=== PATIENT | female | born 1945 | race Caucasian/White ===

== ENCOUNTER 2020-04-07 11:10 | Emergency (ER) | payer MEDICARE ==
[2020-04-07] MEDS ORDERED: SODIUM CHLORIDE 0.9% 1000ML 1,000 ML IV ONE (11:11)
[2020-04-07] MEDS ORDERED: ONDANSETRON HCL 4 MG/2 ML VIAL ONE (11:52)
[2020-04-07] MEDS ORDERED: KETOROLAC TROMETHAMINE 30MG/ML ONE (11:53)
[2020-04-07 12:46] LABS: BASOPHILS % (AUTO) 0.5 % (0.0-5.0); EOSINOPHILS % (AUTO) 0.6 % (0.0-8.0); HEMATOCRIT 42.8 % (36-48); LYMPHOCYTES % (AUTO) 7.9 % (21.0-51.0); MEAN CORPUSCULAR HEMOGLOBIN 30.8 pg (27.0-33.0); MEAN CORPUSCULAR HGB CONC 34.3 g/dL (32.0-36.0); MEAN CORPUSCULAR VOLUME 89.5 fL (79-99); MONOCYTES % (AUTO) 4.5 % (3.0-13.0); NEUTROPHILS % (AUTO) 85.8 % (40.0-77.0); PLATELET COUNT (AUTO) 485 K/uL (130-400); RED BLOOD CELL COUNT(AUTO) 4.78 MIL/uL (4.00-5.50); RED CELL DISTRIBUTION WIDTH 11.9 % (11.0-15.5); WHITE BLOOD COUNT (AUTO) 20.7 K/uL (4.8-10.8)
[2020-04-07 12:57] LABS: CREATININE 1.3 mg/dL (0.5-1.5); INR 0.92 (0.85-1.15); PARTIAL THROMBOPLASTIN TIME 23.8 SEC (26.3-35.5)
[2020-04-07 13:02] LABS: ALBUMIN 3.8 g/dL (3.5-5.0); BILIRUBIN,TOTAL 0.5 mg/dL (0.2-1.0); TOTAL PROTEIN, SERUM 7.3 g/dL (6.0-8.3)
[2020-04-07 14:38] LABS: APPEARANCE,URINE SL CLOUDY (CLEAR); BILIRUBIN,URINE SMALL (NEGATIVE); COLOR,URINE YELLOW (YELLOW); GLUCOSE, URINE (UA) NEGATIVE (NEGATIVE); KETONES,URINE NEGATIVE (NEGATIVE); LEUKOCYTE ESTERASE ,URINE NEGATIVE (NEGATIVE); NITRATE,URINE NEGATIVE (NEGATIVE); OCCULT BLOOD,URINE SMALL (NEGATIVE); PROTEIN,URINE NEGATIVE (NEGATIVE)
[2020-04-07 14:46] LABS: BACTERIA,URINE Few /HPF (None Seen)
[2020-04-07 14:47] LABS: MUCUS,URINE Few LPF (None Seen); SQUAMOUS EPITHELIAL CELL,UR Few /HPF (0-2)
== END 2020-04-07 16:20 | disposition home or self-care (01) ==
LOC: EDH 11:10
DX: A05.9 Bacterial foodborne intoxication, unspecified (principal); R11.2 Nausea with vomiting, unspecified; R19.7 Diarrhea, unspecified; Z20.828 Contact with and (suspected) exposure to other viral communicable diseases; E11.9 Type 2 diabetes mellitus without complications; E78.00 Pure hypercholesterolemia, unspecified; F32.9 Major depressive disorder, single episode, unspecified
CPT/HCPCS: 36415; 71045; 80053; 81001; 82150; 82550; 83690; 84484; 85025; 85610; 85730; 87426; 93005; 96361; 96374; 96375; 99285; J1885; J2405; J7030; U0003

== ENCOUNTER 2020-04-07 18:22 | Observation (INO) | payer MEDICARE ==
[~2020-04-07] VITALS: Ht 162.6 cm; Wt 94.1 kg
[2020-04-07 18:56] LABS: BASOPHILS % (AUTO) 0.4 % (0.0-5.0); EOSINOPHILS % (AUTO) 0.1 % (0.0-8.0); HEMATOCRIT 35.2 % (36-48); LYMPHOCYTES % (AUTO) 7.7 % (21.0-51.0); MEAN CORPUSCULAR HEMOGLOBIN 30.8 pg (27.0-33.0); MEAN CORPUSCULAR HGB CONC 34.1 g/dL (32.0-36.0); MEAN CORPUSCULAR VOLUME 90.3 fL (79-99); MONOCYTES % (AUTO) 4.7 % (3.0-13.0); NEUTROPHILS % (AUTO) 86.7 % (40.0-77.0); PLATELET COUNT (AUTO) 338 K/uL (130-400); RED CELL DISTRIBUTION WIDTH 12.2 % (11.0-15.5); WHITE BLOOD COUNT (AUTO) 13.9 K/uL (4.8-10.8)
[2020-04-07 19:04] LABS: CREATININE 1.5 mg/dL (0.5-1.5); POTASSIUM 4.2 mmol/L (3.5-5.1)
[2020-04-07] MEDS ORDERED: LACTATED RINGERS 1000ML 1,000 ML IV ONE (19:07)
[2020-04-07 19:09] LABS: INR 0.94 (0.85-1.15); PARTIAL THROMBOPLASTIN TIME 26.1 SEC (26.3-35.5); PROTHROMBIN TIME 10.2 SEC (9.6-11.6)
[2020-04-07] MEDS ORDERED: HYDRALAZINE HCL 20 MG/ML VIAL IV PRN (21:00)
[2020-04-07] MEDS ORDERED: ACETAMINOPHEN 325 MG TAB PO PRN ×2 (21:00)
[2020-04-07] MEDS: METRONIDAZOLE 500MG/100ML BAG 100 ML IV SCH (21:00)
[2020-04-07] MEDS ORDERED: MAG HYDROX/AL HYDROX/SIMETH ES 30 ML SUSP UDCUP PO PRN (21:00)
[2020-04-07] MEDS ORDERED: ONDANSETRON HCL 4 MG/2 ML VIAL IV PRN (21:00)
[2020-04-07] MEDS: LACTATED RINGERS 1000ML 1,000 ML IV SCH (21:00)
[2020-04-07] MEDS ORDERED: LACTULOSE 20 GM/30 ML UDCUP PO PRN (21:00)
[2020-04-07] MEDS ORDERED: METRONIDAZOLE 500MG/100ML BAG 100 ML ONE (21:30)
[2020-04-07 21:46] LABS: APPEARANCE,URINE Clear (CLEAR); BILIRUBIN,URINE Small (NEGATIVE); COLOR,URINE Dark Yellow (YELLOW); GLUCOSE, URINE (UA) 250 mg/dL (NEGATIVE); KETONES,URINE Negative (NEGATIVE); LEUKOCYTE ESTERASE ,URINE Small (NEGATIVE); NITRATE,URINE Negative (NEGATIVE); OCCULT BLOOD,URINE Negative (NEGATIVE); PROTEIN,URINE Negative (NEGATIVE)
[2020-04-07 21:55] LABS: BACTERIA,URINE Few /HPF (None Seen); MUCUS,URINE Few LPF (None Seen); SQUAMOUS EPITHELIAL CELL,UR Few /HPF (0-2)
[2020-04-07] MEDS ORDERED: CEFTRIAXONE SODIUM 1 GM IVP SCH (23:30)
[2020-04-08] MEDS: METRONIDAZOLE 500MG/100ML BAG 100 ML IV SCH ×3 (05:00→21:01)
[2020-04-08] MEDS ORDERED: METRONIDAZOLE 500MG/100ML BAG 100 ML ONE ×2 (05:16→13:20)
[2020-04-08 06:04] LABS: BASOPHILS % (AUTO) 0.5 % (0.0-5.0); EOSINOPHILS % (AUTO) 2.1 % (0.0-8.0); HEMATOCRIT 33.8 % (36-48); LYMPHOCYTES % (AUTO) 20.9 % (21.0-51.0); MEAN CORPUSCULAR HEMOGLOBIN 30.4 pg (27.0-33.0); MEAN CORPUSCULAR HGB CONC 33.7 g/dL (32.0-36.0); MEAN CORPUSCULAR VOLUME 90.1 fL (79-99); MONOCYTES % (AUTO) 6.7 % (3.0-13.0); NEUTROPHILS % (AUTO) 69.5 % (40.0-77.0); PLATELET COUNT (AUTO) 322 K/uL (130-400); RED BLOOD CELL COUNT(AUTO) 3.75 MIL/uL (4.00-5.50); RED CELL DISTRIBUTION WIDTH 12.2 % (11.0-15.5); WHITE BLOOD COUNT (AUTO) 10.5 K/uL (4.8-10.8)
[2020-04-08 06:18] LABS: CREATININE 1.2 mg/dL (0.5-1.5); POTASSIUM 3.9 mmol/L (3.5-5.1)
[2020-04-08] MEDS: LACTATED RINGERS 1000ML 1,000 ML IV SCH (07:00)
[2020-04-08] MEDS: INSULIN HUMULIN R 100 UNIT/ML 3ML SQ SCH ×3 (07:30→21:00)
[2020-04-08] MEDS: CEFTRIAXONE SODIUM 1 GM IVP SCH ×2 (07:45→21:01)
[2020-04-08 08:35] LABS: BILIRUBIN,TOTAL 0.3 mg/dL (0.2-1.0); CREATININE 1.2 mg/dL (0.5-1.5); POTASSIUM 3.9 mmol/L (3.5-5.1); TOTAL PROTEIN, SERUM 5.7 g/dL (6.0-8.3)
[2020-04-08] MEDS ORDERED: CEFTRIAXONE SODIUM 1 GM ONE (10:08)
[2020-04-08] MEDS ORDERED: SODIUM CHLORIDE 0.9% 100 ML IV ONE (10:09)
--- NOTE | 2020-04-08 13:40 | NUR ---
ARRIVAL TO UNIT PT ARRIVED TO UNIT TO ROOM 320 BY WHEELCHAIR REPORT GIVEN BY GABRIELA KRISHNAN IN ER. PT IS AAOX4 VS 98.0, HR 79, SPO2 96%, B/P 142/62 PT IS VOICES NO PAIN, OR BLEEDING RECTALLY AT THIS TIME. WILL CONTINUE TO MONITOR.
--- NOTE | 2020-04-08 14:18 | NUR ---
DR. HARIS NOEL RETURNED PAGE, PER DR. HARIS NOEL PT SHOULD STAY ON ANTIBIOTICS, TO F/U WITH HIM IN 1 WEEK. UPON D/C PT SHOULD BE ON ANTIBIOTICS FOR 14 DAYS FOR FURTHER STUDY. NO FURTHER ORDERS.
[2020-04-08 14:40] VITALS: BP 142/62
[2020-04-08 16:00] VITALS: BP 139/66
[2020-04-08 16:01] LABS: HEMATOCRIT 30.7 % (36-48)
--- NOTE | 2020-04-08 17:23 | NUR ---
INITIAL: Met with pt this afternoon to discuss dcp. Pt mentions that she is a [place].. currently living in a park model @ [employer]. Pt states that she lives there w her spouse. Prior to admission she was independent w ambulation and ADLS. Pt owns a cpap, per pt she feels safe and comfortable to return home at wi. CM to continue to follow and wait for Md recommendations. Addendum: 04/08/20 at 1725 by HERMAN RAO Amended: Links added.
[2020-04-08 20:00] VITALS: BP 133/56
[2020-04-08] MEDS ORDERED: SODIUM CHLORIDE 0.9% 250 ML IV ONE (20:53)
[2020-04-09] VITALS: BP 133/52
[2020-04-09] MEDS: LACTATED RINGERS 1000ML 1,000 ML IV SCH ×2 (03:00→10:02)
[2020-04-09 04:00] VITALS: BP 159/65
[2020-04-09] MEDS: METRONIDAZOLE 500MG/100ML BAG 100 ML IV SCH (05:13)
[2020-04-09 05:21] LABS: BASOPHILS % (AUTO) 0.8 % (0.0-5.0); EOSINOPHILS % (AUTO) 2.6 % (0.0-8.0); HEMATOCRIT 30.5 % (36-48); LYMPHOCYTES % (AUTO) 28.1 % (21.0-51.0); MEAN CORPUSCULAR HEMOGLOBIN 29.7 pg (27.0-33.0); MEAN CORPUSCULAR HGB CONC 33.1 g/dL (32.0-36.0); MEAN CORPUSCULAR VOLUME 89.7 fL (79-99); MONOCYTES % (AUTO) 8.2 % (3.0-13.0); PLATELET COUNT (AUTO) 270 K/uL (130-400); WHITE BLOOD COUNT (AUTO) 6.5 K/uL (4.8-10.8)
[2020-04-09 05:38] LABS: ALBUMIN 2.5 g/dL (3.5-5.0); BILIRUBIN,TOTAL 0.2 mg/dL (0.2-1.0); CREATININE 0.9 mg/dL (0.5-1.5); POTASSIUM 3.6 mmol/L (3.5-5.1); TOTAL PROTEIN, SERUM 5.2 g/dL (6.0-8.3)
[2020-04-09] MEDS: INSULIN HUMULIN R 100 UNIT/ML 3ML SQ SCH ×2 (07:30→11:30)
[2020-04-09 07:59] VITALS: BP 145/57
[2020-04-09] MEDS: CEFTRIAXONE SODIUM 1 GM IVP SCH (10:01)
[2020-04-09] MEDS ORDERED: AMOXICILLIN/POTASSIUM CLAV 500-125 TABLET PO SCH (10:30)
[2020-04-09 12:02] VITALS: BP 138/65
--- NOTE | 2020-04-09 16:23 | NUR ---
discharge went over discharge instructions with patient. answered all questions and concerns. she will follow up with per follow up appointments with gi and pcp. removed iv with no issues. escorted patient to exit doors and assisted her into her 's vehicle. patient oriented and alert during discharge and denies pain.
== END 2020-04-09 16:00 | disposition home or self-care (01) ==
LOC: EDH 18:22 → EDHIP 20:49 → 3CH 04-08 13:53
PROVIDERS: ADMIT Family Medicine; ATTEND Family Medicine
DX: E86.0 Dehydration (principal); K52.9 Noninfective gastroenteritis and colitis, unspecified; R19.7 Diarrhea, unspecified; K92.1 Melena; R11.2 Nausea with vomiting, unspecified; E87.2 Acidosis; K57.92 Diverticulitis of intestine, part unspecified, without perforation or abscess without bleeding; E78.00 Pure hypercholesterolemia, unspecified; E11.9 Type 2 diabetes mellitus without complications; E78.5 Hyperlipidemia, unspecified; I10 Essential (primary) hypertension; F32.9 Major depressive disorder, single episode, unspecified; Z90.5 Acquired absence of kidney; Z79.4 Long term (current) use of insulin; Z79.899 Other long term (current) drug therapy
CPT/HCPCS: 36415 ×3; 74176; 80048; 80053 ×2; 82150; 82270; 82948 ×5; 83605 ×2; 83630; 83690; 83880; 84145; 85014; 85018; 85025 ×3; 85610; 85730; 86850; 86900; 86901; 87046; 96365; 96366 ×2; 96375; 96376; 99284; G0378 ×5; J0696 ×3; J3490 ×5; J7050; J7120 ×2

== ENCOUNTER → 2020-06-21 | Outpatient (CLI) | payer MEDICARE | END | disposition home or self-care (01) | LOC: RAH 14:47 | PROVIDERS: ATTEND Orthopaedic Surgery | DX: S83.242A Other tear of medial meniscus, current injury, left knee, initial encounter (principal); M17.12 Unilateral primary osteoarthritis, left knee; M22.42 Chondromalacia patellae, left knee; M25.462 Effusion, left knee; X58.XXXA Exposure to other specified factors, initial encounter; Y93.89 Activity, other specified; Y92.89 Other specified places as the place of occurrence of the external cause; Y99.8 Other external cause status | CPT/HCPCS: 73721 ==

== ENCOUNTER 2020-07-04 06:51 | Day surgery (SDC) | payer MEDICARE ==
[2020-07-02 09:00] VITALS: BP 140/74
[2020-07-02 10:18] LABS: BASOPHILS % (AUTO) 1.3 % (0.0-5.0); EOSINOPHILS % (AUTO) 3.9 % (0.0-8.0); HEMATOCRIT 35.8 % (36-48); LYMPHOCYTES % (AUTO) 31.2 % (21.0-51.0); MEAN CORPUSCULAR HEMOGLOBIN 30.2 pg (27.0-33.0); MEAN CORPUSCULAR HGB CONC 33.5 g/dL (32.0-36.0); MEAN CORPUSCULAR VOLUME 89.9 fL (79-99); MONOCYTES % (AUTO) 9.1 % (3.0-13.0); NEUTROPHILS % (AUTO) 54.2 % (40.0-77.0); PLATELET COUNT (AUTO) 380 K/uL (130-400); RED BLOOD CELL COUNT(AUTO) 3.98 MIL/uL (4.00-5.50); WHITE BLOOD COUNT (AUTO) 6.2 K/uL (4.8-10.8)
[2020-07-02 10:33] LABS: CREATININE 1.1 mg/dL (0.5-1.5)
[2020-07-02 10:59] LABS: POTASSIUM 4.2 mmol/L (3.5-5.1)
[2020-07-04] VITALS (16 sets, daily range): BP systolic 114–150; BP diastolic 48–64
[~2020-07-04] VITALS: Ht 160 cm; Wt 89.7 kg
[2020-07-04] MEDS: CEFAZOLIN SODIUM 1 GM VIAL IVP SCH ×2 (05:00→10:10)
[~2020-07-04 06:51] MED LIST: AEC81 PO; CARV6.25 PO; DOCU50CA13 PO; DULO60CA64 PO; FAMO40TA7 PO; FOLI0.8T43 PO; FURO20TA4 PO; INSU100I26 SQ; LISI2.5T13 PO; LORA10TA7 PO; OMEP20CA12 PO; PRAV20TA4 PO; TRAZ-187 PO
[2020-07-04] MEDS ORDERED: LACTATED RINGERS 1000ML 1,000 ML IV ONE (08:11)
[2020-07-04] MEDS ORDERED: 0.9%NACL 10ML VIAL ONE (08:11)
[2020-07-04] MEDS ORDERED: MIDAZOLAM HCL 1 MG/ML 2ML VIAL ONE (09:53)
[2020-07-04] MEDS ORDERED: ROCURONIUM 10MG/1ML SYR 10 MG/ML ML ONE (09:55)
[2020-07-04] MEDS ORDERED: PROPOFOL 10 MG/ML 20ML VIAL IV ONE (09:55)
[2020-07-04] MEDS ORDERED: FENTANYL CITRATE PF 50 MCG/1 ML 2ML VIAL ONE (10:08)
[2020-07-04] MEDS ORDERED: ONDANSETRON 4MG INJ ONE ×2 (10:39→12:37)
[2020-07-04] MEDS ORDERED: ACET1TAB25 PO (11:38)
[2020-07-04] MEDS ORDERED: IBUP-2070 PO (11:38)
[2020-07-04] MEDS ORDERED: CEPH500B PO (11:38)
== END 2020-07-04 13:25 | disposition home or self-care (01) ==
LOC: DAH 06:51
PROVIDERS: ATTEND Orthopaedic Surgery
DX: M23.342 Other meniscus derangements, anterior horn of lateral meniscus, left knee (principal); M23.322 Other meniscus derangements, posterior horn of medial meniscus, left knee; Z20.828 Contact with and (suspected) exposure to other viral communicable diseases; M17.12 Unilateral primary osteoarthritis, left knee; G89.29 Other chronic pain; I10 Essential (primary) hypertension; E11.9 Type 2 diabetes mellitus without complications; E66.9 Obesity, unspecified; Z98.890 Other specified postprocedural states; Z90.89 Acquired absence of other organs; Z82.49 Family history of ischemic heart disease and other diseases of the circulatory system; Z83.3 Family history of diabetes mellitus; Z79.82 Long term (current) use of aspirin; Z79.899 Other long term (current) drug therapy
CPT/HCPCS: 29880; 36415; 80048; 82948; 85025; 87426; 93005; A4215; A4221; A4222; A4223; A4606; A4649 ×2; A4663; A4930; A6223; J0690; J2250; J2405 ×2; J2704; J3010; J7120 ×2; U0003

== ENCOUNTER → 2021-08-08 | Outpatient (CLI) | payer MEDICARE, OTHER ==
[~2021-08-08] MED LIST changes: +ACET1TAB25 PO; +CEPH500B PO; +IBUP-2070 PO
== END | disposition home or self-care (01) ==
LOC: RAH 11:13
PROVIDERS: ATTEND Internal Medicine Nephrology
DX: R94.4 Abnormal results of kidney function studies (principal)
CPT/HCPCS: 76770

== ENCOUNTER 2022-03-29 18:48 | Inpatient (IN) | payer MEDICARE, OTHER ==
[~2022-03-29] VITALS: Ht 162.6 cm; Wt 83.5 kg
[~2022-03-29 18:48] MED LIST changes: +ACET-2079 PO; -ACET1TAB25 PO
[2022-03-29 19:11] LABS: EOSINOPHILS % (AUTO) 1.3 % (0.0-8.0); HEMATOCRIT 38.6 % (36-48); LYMPHOCYTES % (AUTO) 31.1 % (21.0-51.0); MEAN CORPUSCULAR HEMOGLOBIN 30.9 pg (27.0-33.0); MEAN CORPUSCULAR HGB CONC 34.2 g/dL (32.0-36.0); MEAN CORPUSCULAR VOLUME 90.4 fL (79-99); NEUTROPHILS % (AUTO) 59.3 % (40.0-77.0); PLATELET COUNT (AUTO) 363 K/uL (130-400); RED BLOOD CELL COUNT(AUTO) 4.27 MIL/uL (4.00-5.50)
[2022-03-29 19:26] LABS: POTASSIUM 3.6 mmol/L (3.5-5.1)
[2022-03-29 19:31] LABS: ALBUMIN 3.4 g/dL (3.5-5.0); TOTAL PROTEIN, SERUM 6.7 g/dL (6.0-8.3)
[2022-03-29] MEDS ORDERED: DEXTROSE 50%-WATER 50 ML DISP.SYRIN IV ONE ×2 (22:26→23:00)
[2022-03-29] MEDS ORDERED: POTASSIUM CHLORIDE 20MEQ/100ML 100 ML IV PRN (23:00)
[2022-03-29] MEDS ORDERED: POTASSIUM CHLORIDE 10% ELIXIR 20 MEQ/15 ML UDCUP PO PRN (23:00)
[2022-03-29] MEDS ORDERED: LIDOCAINE HCL-MPF 1% 2ML VIAL IV PRN (23:00)
[2022-03-29] MEDS ORDERED: KCL 20 MEQ ERTAB PO PRN (23:00)
[2022-03-29] MEDS ORDERED: ACETAMINOPHEN 325 MG TAB PO PRN (23:00)
[2022-03-29] MEDS: DEXTROSE 10%-WATER 1,000 ML IV SCH (23:57)
[2022-03-30] MEDS: ONDANSETRON 4MG INJ IVP PRN ×2 (03:51→17:05)
[2022-03-30 04:00] VITALS: BP 172/79
[2022-03-30 05:56] LABS: BASOPHILS % (AUTO) 0.4 % (0.0-5.0); EOSINOPHILS % (AUTO) 1.7 % (0.0-8.0); LYMPHOCYTES % (AUTO) 6.6 % (21.0-51.0); MEAN CORPUSCULAR HEMOGLOBIN 30.3 pg (27.0-33.0); MEAN CORPUSCULAR HGB CONC 33.6 g/dL (32.0-36.0); NEUTROPHILS % (AUTO) 85.9 % (40.0-77.0); PLATELET COUNT (AUTO) 272 K/uL (130-400); RED CELL DISTRIBUTION WIDTH 12.1 % (11.0-15.5); WHITE BLOOD COUNT (AUTO) 7.2 K/uL (4.8-10.8)
[2022-03-30 06:22] LABS: MAGNESIUM 1.6 mg/dL (1.80-2.40); POTASSIUM 4.1 mmol/L (3.5-5.1)
[2022-03-30 06:54] LABS: HEMOGLOBIN A1C 6.5 % (4.0-6.0)
[2022-03-30 08:00] VITALS: BP 139/61
[2022-03-30 11:54] VITALS: BP 159/58
[2022-03-30 16:00] VITALS: BP 150/71
[2022-03-30] MEDS: INSULIN HUMULIN R 100 UNIT/ML 3ML SQ SCH ×2 (16:37→21:00)
[2022-03-30 20:00] VITALS: BP 146/50
[2022-03-30] MEDS: DEXTROSE 10%-WATER 1,000 ML IV SCH (22:18)
[2022-03-31] VITALS: BP 154/59
[2022-03-31 03:57] VITALS: BP 158/59
[2022-03-31] MEDS: INSULIN HUMULIN R 100 UNIT/ML 3ML SQ SCH ×2 (06:43→12:40)
[2022-03-31 08:00] VITALS: BP 159/61
[2022-03-31 12:00] VITALS: BP 135/69
[2022-03-31] MEDS ORDERED: MAG/ALUM/SIMETH 30 ML UDCUP PO SCH (14:30)
[2022-03-31] MEDS: DEXTROSE 10%-WATER 1,000 ML IV SCH (15:00)
== END 2022-03-31 15:35 | disposition home or self-care (01) | DRG 918 ==
LOC: EDH 18:48 → EDHIP 22:38 → 3BH 03-30 03:08
PROVIDERS: ADMIT Internal Medicine Infectious Disease; ATTEND Internal Medicine Infectious Disease
DX: T38.3X1A Poisoning by insulin and oral hypoglycemic [antidiabetic] drugs, accidental (unintentional), initial encounter (principal); E66.9 Obesity, unspecified; E11.649 Type 2 diabetes mellitus with hypoglycemia without coma; I10 Essential (primary) hypertension; F32.A Depression, unspecified; E11.65 Type 2 diabetes mellitus with hyperglycemia; E78.5 Hyperlipidemia, unspecified; M19.90 Unspecified osteoarthritis, unspecified site; Z83.3 Family history of diabetes mellitus; Z90.5 Acquired absence of kidney; Z79.4 Long term (current) use of insulin; Y92.89 Other specified places as the place of occurrence of the external cause; Z68.31 Body mass index [BMI] 31.0-31.9, adult
CPT/HCPCS: 36415; 80048; 80053; 82948; 83036; 83735; 85025; G0378; J1815; J2405; J3490; J7070